=== PATIENT | female | born 1960 | race Caucasian/White ===

== ENCOUNTER 2016-10-15 14:17 | Emergency (ER) | payer MEDICARE, MEDICAID, SELFPAY ==
[2016-10-15 15:02] VITALS: BMI 48.4
[2016-10-15 15:17] LABS: AUTOMATED BASOPHIL 0.7 % (0-2); AUTOMATED EOSINOPHIL 0.3 % (0-5); AUTOMATED LYMPH 21.4 % (17-44); AUTOMATED MONOCYTE 13.2 % (3-10); AUTOMATED NEUTROPHIL 64.4 % (45-76); MPV 7.8 fL (7.4-10.4)
[2016-10-15 15:28] LABS: BLOOD UREA NITROGEN 14 MG/DL (7-17); CALCIUM 10.3 MG/DL (8.4-10.2); CALCULATED OSMOLALITY 280 MOs/Kg (270-290); CHLORIDE 102 mEq/L (98-107); GLUCOSE 178 MG/DL (70-99); SODIUM LEVEL 143 mEq/L (137-146)
--- NOTE | 2016-10-15 15:45 | DIRPT ---
CLINICAL DATA: Shortness of breath and fever EXAM: CHEST - 2 VIEW COMPARISON: 05/15/2016 FINDINGS: Cardiac shadow is mildly prominent. The lungs are well aerated bilaterally. Minimal increased density is noted in the bases bilaterally likely representing atelectasis. No focal confluent infiltrate is seen. No bony abnormality is noted. IMPRESSION: Mild bilateral atelectasis in the bases. No focal infiltrate is seen. Electronically Signed By: Scott Mcgee M.D. On: 10/15/2016 15:42
[2016-10-15] MEDS ORDERED: PROMETHAZINE 25 MG/ML VIAL IM ONE (17:26)
[2016-10-15] MEDS ORDERED: OXYCODONE HCL 5 MG TABLET PO ONE (17:26)
--- NOTE | 2016-10-15 17:29 | EDPRACDOC ---
- General Information Chief Complaint: Flu-Like Symptoms Stated Complaint: COUGH/FLACO/BODY ACHES/FEVER Time Seen by Provider: 10/15/16 17:25 Information Source: Patient Mode Of Arrival: Car Home Medications: Home Medications Albuterol Sulfate [Proair Hfa] 2 puff INH Q4-6H PRN 04/01/15 Amitriptyline HCl [Elavil] 30 mg PO HS 04/01/15 Aspirin 325 mg PO DAILY 04/01/15 Benztropine Mesylate 2 mg PO HS 04/01/15 Duloxetine [Cymbalta] 120 mg PO QAM 04/01/15 Esomeprazole Mag Trihydrate [Nexium] 40 mg PO BID 04/01/15 Glipizide [Glipizide ER] 10 mg PO DAILY 04/01/15 Hydroxyzine Pamoate 100 mg PO QHS 04/01/15 Mometasone/Formoterol [Dulera 200/5] 2 puff INH RTBID 04/01/15 Montelukast Sodium [Singulair] 10 mg PO DAILY 04/01/15 Oxycodone HCl/Acetaminophen [Oxycodon-Acetaminophen 7.5-325] 1 tab PO TID PRN Potassium Chloride 10 meq PO BID 04/01/15 Pregabalin [Lyrica] 150 mg PO TID 04/01/15 Rosuvastatin [Crestor] 10 mg PO HS 04/01/15 Senna Concentrate [Senokot] 1 tab PO DAILY 04/01/15 Furosemide [Lasix] 40 mg PO DAILY 06/24/15 Lorazepam [Ativan] 1 mg PO TID 06/24/15 Multivitamin [One Daily] 1 each PO DAILY 06/24/15 [place]-3 Acid Ethyl Esters [Lovaza] 1 gm PO BID 06/24/15 Aripiprazole [Abilify] 15 mg PO HS 01/21/16 Calcium Carbonate/Vitamin D3 [Calcium 600 + Vit D 200 Tablet] 1 each PO BID 08/27 Carbamazepine [Tegretol] 400 mg PO BID 01/21/16 Metformin HCl [Metformin HCl ER] 1,000 mg PO BID 01/21/16 TOPIRAMATE (Anticonvulsant) [Topamax] 50 mg PO BID 01/21/16 Tizanidine HCl [Zanaflex] 4 mg PO TID PRN 01/21/16 Ciclesonide [Omnaris] 12.5 gm SANTOSH DAILY 05/15/16 Fentanyl [Duragesic] 25 mcg TOP Q72H 05/15/16 Ketorolac Tromethamine [Toradol] 10 mg PO Q6H PRN #20 tab 05/20/16 Diphenoxylate HCl/Atrop Sulf [Lomotil Tablet] 1 each PO TID #10 tablet 10/15/16 Ondansetron [Zofran Odt] 4 mg PO Q6H #20 tab.rapdis 10/15/16 Allergies/Adverse Reactions: Allergies Allergy/AdvReac Type Severity Reaction Status Date / Time amoxicillin trihydrate Allergy Mild Diarrhea Verified 10/15/16 15:02 [From Augmentin] cephalexin monohydrate Allergy Mild Diarrhea Verified 10/15/16 15:02 [From Keflex] erythromycin base Allergy Mild Diarrhea Verified 10/15/16 15:02 [Erythromycin Base] hydrocodone bitartrate Allergy Mild Difficulty Verified 10/15/16 15:02 [From Vicodin] Breathing levofloxacin [From Levaquin] Allergy Mild Difficulty Verified 10/15/16 15:02 Breathing loratadine [From Claritin] Allergy Mild Difficulty Verified 10/15/16 15:02 Breathing potassium clavula Allergy Mild UNKNOWN Verified 10/15/16 15:02 *RETIRED-03/18/13 [From Augmentin] sulfamethoxazole Allergy Mild UNKNOWN Verified 10/15/16 15:02 [From Septra] trimethoprim [From Septra] Allergy Mild UNKNOWN Verified 10/15/16 15:02 dicyclomine Allergy Unknown Unknown Verified 10/15/16 15:02 - History of Present Illness Onset: 2 weeks HPI: PT C/O N/V/D RUNNY NOSE AND BODYACHES FOR APPROX 2 WEEKS, STATES SHE WAS DXD WITH THE FLU APPROX 1 WEEK AGO. STATS SHE CANT KEEP ANYTHING DOWN, AND AFTER SHE DRINKS OR EATS 20-30 MINUTES LATER SHE VOMITS. Symptoms Occured: Reports: Spontaneous Duration: Reports: Since Onset Emesis: Reports: Bilious Recent: Reports: None Pain Quality: Reports: Aching Pain Severity: Moderate Pain Location: Reports: Diffuse : No Associated Signs & Symptoms: Reports: Nausea, Vomiting, Diarrhea, Chills, Other (BODYACHES AND NASAL SYMPTOMS) Oral Intake: Decreased (PER PT) Urinary Output: Normal ED Past Medical History - History Reviewed Yes Nurses notes reviewed and agree except as marked Travel Outside of [place] in the Last 3 Months?: No - Patient Medical History Neurological History: Reports: Cerebrovascular Accident (tia) Cardiac History: Reports: Atrial Fibrillation, Hypertension, Congestive Heart Failure, Hypercholesterolemia Respiratory History: Reports: Asthma, COPD, Pneumonia, Emphysema GI/ History: Reports: Gastroesophageal Reflux Musculoskeletal History: Reports: Arthritis Psychological History: Reports: Depression, Anxiety, Bipolar Disorder Systemic History: Reports: Diabetes. Denies: Cancer Additional Past Medical History: CHRONIC PAIN Surgical History: Reports: Hysterectomy, Tonsillectomy/Adnoidectomy, Other ( knee replacement) - Family Medical History Reports: Hypertension, Cancer, Stroke, Cardiac Disorders - Social Medical History Smoking Status: Never smoker ETOH: None Substance Abuse: None Lives With: Spouse Lives In: Home EDM Review of Systems - Review of Systems ROS Negative Except as Marked: Yes All systems reviewed and were negative except as marked Constitutional: Chills, Fever, Other (MYALGIAS). negative: Fatigue, Loss of Appetite, Weakness Eyes: No Symptoms Reported. negative: Redness, Blurred Vision, Double Vision, Discharge, Pain, Light Sensitive, Photophobia Ears: No Symptoms Reported. negative: Pain, Hearing Loss, Drainage, Ear Pulling Throat: No Symptoms Reported. negative: Pain, Swelling Nose: Congestion. negative: Abrasion, Bleeding, Discharge, Deformity, Ecchymosis, Injection, Laceration, Swelling, Tender Mouth: No Symptoms Reported. negative: Pain, Drooling Respiratory: No Symptoms Reported. negative: Cough, Brassy Cough, Barky Cough, Shortness of Breath, Wheezing, Hemoptysis Cardiovascular: No Symptoms Reported. negative: Chest Pain, Cyanosis, Edema, Orthopnea, Palpitations, PND, Syncope, Skin Mottling Gastrointestinal: Diarrhea, Nausea, Vomiting. negative: Constipation, Formula Intolerance, Melena, Pain Genitourinary: No Symptoms Reported. negative: Dysuria, Hematuria, Frequency, Discharge, Bleeding, Testicular Pain, Neurological: No Symptoms Reported. negative: Headache, Dizziness, Seizure, Numbness, Weakness, Speech Difficulty, Gait Difficulty Musculoskeletal: Other (MYALGIAS). negative: Arm, Ankle, Back, Chestwall, Elbow , Forearm, Femur, Foot, Hand, Hip, Knee, Leg, Neck, Pelvis, Ribs, Shoulder, Wrist Integumentary: No Symptoms Reported. negative: Itching, Rash, Bruising, Wound Allergic/Immunologic: No Symptoms Reported. negative: Hives, Itching Hematologic: No Symptoms Reported. negative: Lymphadenopathy, Easy Bruising, Easy Bleeding Endocrine: No Symptoms Reported. negative: Weight Gain, Weight Loss Psychiatric: No Symptoms Reported. negative: Anxiety, Depression, Hallucinations, Insomnia, Suicidal - Physical Exam Constitutional: Alert (Awake), No apparent distress Oriented to: Time, Person, Place Last recorded Vital Signs: Last Vital Signs Temp 98.1 F 10/15/16 14:59 Pulse 111 10/15/16 14:59 Resp 18 10/15/16 14:59 BP 166/94 10/15/16 14:59 Pulse Ox 93 10/15/16 14:59 Oxygen Pulse Oxygen Saturation 93 O2 Device Room Air Oxygen Flow Rate Fraction of Inspired Oxygen ( FIO2) - HEENT Head: Normal ( normocephalic) Eye Exam: Normal (PERRL, EOMI, Sclera white) Oropharynx: Normal (Pharynx:Moist without exudate,Gums-no swelling), Other ( MEMBRANES WET AND PINK) Tympanic Membrane: Normal ENT EAC: Normal TMJ: Normal Nose: No Symptoms Reported (septum midline) Neck: Normal (FROM, trachea at midline) - Respiratory/Cardiovascular Respiratory: Normal - CTA (BBS clear to auscultation without adventitious sounds ) Cardiovascular: Tachycardia (109 AT BEDSIDE) - GI Auscultation: Normal (NABS) Palpation: Normal (Soft,No rebound or guarding, non distended) Tenderness: Non tender Townsend's Sign: Negative - Bladder: Normal - Musculoskeletal Back: Normal (Non-Tender) Extremities: Normal (Normal tone, Pulses 2+ No cyanosis or edema, FROM) - Integumentary Skin: Normal, Warm, Dry Lymphatics: Normal (no adenopathy) - Neurologic Memory Impaired: Normal Motor Function: Normal (Normal tone, Pulses 2+ No cyanosis or edema, FROM) Cranial Nerve: Normal (CN II-X11 intact sensation, strength 5/5) Cerebellar: Normal Mood Description: Normal Perception: Normal - Differential Diagnosis Diarrhea, Other (INFLUENZA, VIRAL SYNDROME, DEHYDRATION) - Results 10/15/16 15:06 10/15/16 15:06 WBC 5.9 xk/uL (3.8-10.8) 10/15/16 15:06 RBC 5.14 xM/uL (4.20-5.40) 10/15/16 15:06 Hgb 13.7 g/dL (12.0-16.0) 10/15/16 15:06 Hct 41.1 % (36-47) 10/15/16 15:06 MCV 80 fL (81-99) L 10/15/16 15:06 MCH 26.7 pg (27-32) L 10/15/16 15:06 MCHC 33.5 g/dl (33-36) 10/15/16 15:06 RDW 14.6 % (11.5-14.5) H 10/15/16 15:06 Plt Count 196 xk/uL (130-400) 10/15/16 15:06 MPV 7.8 fL (7.4-10.4) 10/15/16 15:06 Neut % (Auto) 64.4 % (45-76) 10/15/16 15:06 Lymph % (Auto) 21.4 % (17-44) 10/15/16 15:06 [place] % (Auto) 13.2 % (3-10) H 10/15/16 15:06 Eos % (Auto) 0.3 % (0-5) 10/15/16 15:06 Baso % (Auto) 0.7 % (0-2) 10/15/16 15:06 Absolute Neuts (auto) 3.78 xk/uL (1.7-8.2) 10/15/16 15:06 Absolute Lymphs (auto) 1.24 xk/uL (0.65-4.75) 10/15/16 15:06 Sodium 143 mEq/L (137-146) 10/15/16 15:06 Potassium 4.3 mEq/L (3.5-5.1) 10/15/16 15:06 Chloride 102 mEq/L (98-107) 10/15/16 15:06 Carbon Dioxide 24 mMOL/L (22-33) 10/15/16 15:06 Anion Gap 21 mEq/L (8-16) H 10/15/16 15:06 BUN 14 MG/DL (7-17) 10/15/16 15:06 Creatinine 0.70 MG/DL (0.52-1.04) 10/15/16 15:06 Estimated GFR (MDRD) > 60 mL/min (>=60) 10/15/16 15:06 Glucose 178 MG/DL (70-99) H 10/15/16 15:06 Calculated Osmolality 280 MOs/Kg (270-290) 10/15/16 15:06 Calcium 10.3 MG/DL (8.4-10.2) H 10/15/16 15:06 Total Bilirubin 0.5 MG/DL (0.2-1.3) 10/15/16 15:06 AST 95 IU/L (14-36) H 10/15/16 15:06 ALT 90 IU/L (9-52) H 10/15/16 15:06 Alkaline Phosphatase 164 IU/L (38-126) H 10/15/16 15:06 Total Protein 8.0 G/DL (6.3-8.2) 10/15/16 15:06 Albumin 4.8 G/DL (3.5-5.0) 10/15/16 15:06 Lab Results 10/15/16 10/15/16 15:06 15:06 WBC 5.9 RBC 5.14 Hgb 13.7 Hct 41.1 MCV 80 L MCH 26.7 L MCHC 33.5 RDW 14.6 H Plt Count 196 MPV 7.8 Neut % (Auto) 64.4 Lymph % (Auto) 21.4 [place] % (Auto) 13.2 H Eos % (Auto) 0.3 Baso % (Auto) 0.7 Absolute Neuts (auto) 3.78 Absolute Lymphs (auto) 1.24 Sodium 143 Potassium 4.3 Chloride 102 Carbon Dioxide 24 Anion Gap 21 H BUN 14 Creatinine 0.70 Estimated GFR (MDRD) > 60 Glucose 178 H Calculated Osmolality 280 Calcium 10.3 H Total Bilirubin 0.5 AST 95 H ALT 90 H Alkaline Phosphatase 164 H Total Protein 8.0 Albumin 4.8 - Diagnostic Imaging CXR Image interpreted by: Radiologist IMPRESSION: Mild bilateral atelectasis in the bases. No focal infiltrate is seen. Decision Time to Discharge: 17:34 - Departure Disposition: Home Condition: Stable Final Diagnosis: Nausea vomiting and diarrhea Instructions: Acute Nausea and Vomiting (ED) Education/Counseling Given To: Patient Education/Counseling Given Regarding: Diagnosis, Treatment, Prognosis, Follow Up Referrals: None,No Provider [NonStaff] - One Week Prescriptions: Diphenoxylate HCl/Atrop Sulf [Lomotil Tablet] 1 each PO TID #10 tablet Ondansetron [Zofran Odt] 4 mg PO Q6H #20 tab.rapdis Additional Instructions: INCREASE PO FLUIDS. FOLLOW UP WITH YOUR PRIMARY MEDICAL DOCTOR.
[2016-10-15 18:15] VITALS: BP 140/78; PULSE 100; TEMP 98.9
== END 2016-10-15 18:15 | disposition home or self-care (01) ==
LOC: ED 14:17 → EDMC 18:15
DX: R11.2 Nausea with vomiting, unspecified (principal); R19.7 Diarrhea, unspecified
CPT/HCPCS: 36415; 71020; 80053; 85025; 96372; 99283; A9270; J2550; J3490

== ENCOUNTER 2016-11-09 00:27 | Emergency (ER) | payer MEDICARE, MEDICAID ==
[2016-11-09 00:45] VITALS: TEMP 98.5; BMI 49.5
--- NOTE | 2016-11-09 00:58 | EDPRACDOC ---
- General Information Chief Complaint: Back Pain Stated Complaint: BACK PAIN Time Seen by Provider: 11/09/16 00:49 Mode Of Arrival: Car Home Medications: Home Medications Albuterol Sulfate [Proair Hfa] 2 puff INH Q4-6H PRN 04/01/15 Amitriptyline HCl [Elavil] 30 mg PO HS 04/01/15 Aspirin 325 mg PO DAILY 04/01/15 Benztropine Mesylate 2 mg PO HS 04/01/15 Duloxetine [Cymbalta] 120 mg PO QAM 04/01/15 Esomeprazole Mag Trihydrate [Nexium] 40 mg PO BID 04/01/15 Glipizide [Glipizide ER] 10 mg PO DAILY 04/01/15 Hydroxyzine Pamoate 100 mg PO QHS 04/01/15 Mometasone/Formoterol [Dulera 200/5] 2 puff INH RTBID 04/01/15 Montelukast Sodium [Singulair] 10 mg PO DAILY 04/01/15 Oxycodone HCl/Acetaminophen [Oxycodon-Acetaminophen 7.5-325] 1 tab PO TID PRN Potassium Chloride 10 meq PO BID 04/01/15 Pregabalin [Lyrica] 150 mg PO TID 04/01/15 Rosuvastatin [Crestor] 10 mg PO HS 04/01/15 Senna Concentrate [Senokot] 1 tab PO DAILY 04/01/15 Furosemide [Lasix] 40 mg PO DAILY 06/24/15 Lorazepam [Ativan] 1 mg PO TID 06/24/15 Multivitamin [One Daily] 1 each PO DAILY 06/24/15 [place]-3 Acid Ethyl Esters [Lovaza] 1 gm PO BID 06/24/15 Aripiprazole [Abilify] 15 mg PO HS 01/21/16 Calcium Carbonate/Vitamin D3 [Calcium 600 + Vit D 200 Tablet] 1 each PO BID 08/27 Carbamazepine [Tegretol] 400 mg PO BID 01/21/16 Metformin HCl [Metformin HCl ER] 1,000 mg PO BID 01/21/16 TOPIRAMATE (Anticonvulsant) [Topamax] 50 mg PO BID 01/21/16 Tizanidine HCl [Zanaflex] 4 mg PO TID PRN 01/21/16 Ciclesonide [Omnaris] 12.5 gm SANTOSH DAILY 05/15/16 Fentanyl [Duragesic] 25 mcg TOP Q72H 05/15/16 Ketorolac Tromethamine [Toradol] 10 mg PO Q6H PRN #20 tab 05/20/16 Diphenoxylate HCl/Atrop Sulf [Lomotil Tablet] 1 each PO TID #10 tablet 10/15/16 Ondansetron [Zofran Odt] 4 mg PO Q6H #20 tab.rapdis 10/15/16 Naproxen Sodium 500 mg PO BID PRN #20 tablet.sa 11/09/16 Prednisone [Deltasone, Orasone] 40 mg PO DAILY 5 Days 11/09/16 Allergies/Adverse Reactions: Allergies Allergy/AdvReac Type Severity Reaction Status Date / Time amoxicillin trihydrate Allergy Mild Diarrhea Verified 11/09/16 00:46 [From Augmentin] cephalexin monohydrate Allergy Mild Diarrhea Verified 11/09/16 00:46 [From Keflex] erythromycin base Allergy Mild Diarrhea Verified 11/09/16 00:46 [Erythromycin Base] hydrocodone bitartrate Allergy Mild Difficulty Verified 11/09/16 00:46 [From Vicodin] Breathing levofloxacin [From Levaquin] Allergy Mild Difficulty Verified 11/09/16 00:46 Breathing loratadine [From Claritin] Allergy Mild Difficulty Verified 11/09/16 00:46 Breathing potassium clavula Allergy Mild UNKNOWN Verified 11/09/16 00:46 *RETIRED-03/18/13 [From Augmentin] sulfamethoxazole Allergy Mild UNKNOWN Verified 11/09/16 00:46 [From Septra] trimethoprim [From Septra] Allergy Mild UNKNOWN Verified 11/09/16 00:46 dicyclomine Allergy Unknown Unknown Verified 11/09/16 00:46 - History of Present Illness Onset: 3 days HPI: PT REPORTS INCREASE IN CHRONIC LOW BACK PAIN OVER THE LAST 3 DAYS, NO NEW INJURY , PT SEES PAIN MANAGEMENT ABOUT HER BACK, TAKING HER USUAL OXYCODONE AND MORPHINE WITHOUT RELIEF. Pain Location: Reports: Bilateral, Lower, Lumbar Pain Radiates To: Reports: None Pain Caused By: Reports: Spontaneous Relevant History: Reports: Chronic back pain Pain Severity: Reports: Severe Pain Quality: Reports: Sharp, Stabbing Worsened By: Reports: Movement Associated Signs and Symptoms: Reports: None ED Past Medical History - History Reviewed Yes Nurses notes reviewed and agree except as marked - Patient Medical History Neurological History: Reports: Cerebrovascular Accident (tia) Cardiac History: Reports: Atrial Fibrillation, Hypertension, Congestive Heart Failure, Hypercholesterolemia Respiratory History: Reports: Asthma, COPD, Pneumonia, Emphysema GI/ History: Reports: Gastroesophageal Reflux Musculoskeletal History: Reports: Arthritis Psychological History: Reports: Depression, Anxiety, Bipolar Disorder Systemic History: Reports: Diabetes. Denies: Cancer Additional Past Medical History: CHRONIC PAIN Surgical History: Reports: Hysterectomy, Tonsillectomy/Adnoidectomy, Other ( knee replacement) - Family Medical History Reports: Hypertension, Cancer, Stroke, Cardiac Disorders - Social Medical History Smoking Status: Former smoker ETOH: None Substance Abuse: None EDM Review of Systems - Review of Systems Constitutional: negative: Chills, Fever Gastrointestinal: negative: Nausea, Vomiting Genitourinary: negative: Dysuria, Frequency Neurological: negative: Dizziness, Headache, Numbness, Weakness Musculoskeletal: Back Integumentary: No Symptoms Reported - Physical Exam Constitutional: Alert (Awake), No apparent distress Oriented to: Time, Person, Place Last recorded Vital Signs: Last Vital Signs Temp 98.5 F 11/09/16 00:43 Pulse 87 11/09/16 00:43 Resp 20 11/09/16 00:43 BP 148/68 11/09/16 00:43 Pulse Ox 97 11/09/16 00:43 Oxygen Pulse Oxygen Saturation 97 O2 Device Room Air Oxygen Flow Rate Fraction of Inspired Oxygen ( FIO2) - HEENT Head: Normal ( normocephalic) - Integumentary Skin: Normal, Warm, Dry Lymphatics: Normal (no adenopathy) - Neurologic Memory Impaired: Normal Motor Function: Normal (Normal tone, Pulses 2+ No cyanosis or edema, FROM) Cranial Nerve: Normal (CN II-X11 intact sensation, strength 5/5) Cerebellar: Normal Mood Description: Normal Perception: Normal ED Back Exam - Neurologic Motor Deficit: None - Musculoskeletal Cervical: Normal Thoracic: Normal Lumbar: Tender Midline: Tender Paraspinous: Tender Straight Leg Raise: Negative Pelvis: Normal - Differential Diagnosis HNP, Musculoskeletal pain, Strain Decision Time to Discharge: 00:59 - Departure Disposition: Home Condition: Stable Final Diagnosis: Acute exacerbation of chronic low back pain Instructions: Back Pain Education/Counseling Given To: Patient Education/Counseling Given Regarding: Diagnosis, Treatment, Prognosis, Follow Up Referrals: Nuris Jeffries PA [Primary Care Provider] - One Week Prescriptions: New Naproxen Sodium 500 mg PO BID PRN #20 tablet.sa PRN Reason: Pain Prednisone [Deltasone, Orasone] 40 mg PO DAILY 5 Days No Action Aspirin 325 mg PO DAILY Senna Concentrate [Senokot] 1 tab PO DAILY Albuterol Sulfate [Proair Hfa] 2 puff INH Q4-6H PRN PRN Reason: Shortness Of Breath Mometasone/Formoterol [Dulera 200/5] 2 puff INH RTBID Amitriptyline HCl [Elavil] 30 mg PO HS Glipizide [Glipizide ER] 10 mg PO DAILY Hydroxyzine Pamoate 100 mg PO QHS Benztropine Mesylate 2 mg PO HS Pregabalin [Lyrica] 150 mg PO TID Montelukast Sodium [Singulair] 10 mg PO DAILY Potassium Chloride 10 meq PO BID Rosuvastatin [Crestor] 10 mg PO HS Esomeprazole Mag Trihydrate [Nexium] 40 mg PO BID Oxycodone HCl/Acetaminophen [Oxycodon-Acetaminophen 7.5-325] 1 tab PO TID PRN PRN Reason: Pain Duloxetine [Cymbalta] 120 mg PO QAM Multivitamin [One Daily] 1 each PO DAILY [place]-3 Acid Ethyl Esters [Lovaza] 1 gm PO BID Lorazepam [Ativan] 1 mg PO TID Furosemide [Lasix] 40 mg PO DAILY TOPIRAMATE (Anticonvulsant) [Topamax] 50 mg PO BID Calcium Carbonate/Vitamin D3 [Calcium 600 + Vit D 200 Tablet] 1 each PO BID Carbamazepine [Tegretol] 400 mg PO BID Metformin HCl [Metformin HCl ER] 1,000 mg PO BID Tizanidine HCl [Zanaflex] 4 mg PO TID PRN PRN Reason: Muscle Spasms Aripiprazole [Abilify] 15 mg PO HS Fentanyl [Duragesic] 25 mcg TOP Q72H Ciclesonide [Omnaris] 12.5 gm SANTOSH DAILY Ketorolac Tromethamine [Toradol] 10 mg PO Q6H PRN #20 tab PRN Reason: Pain Diphenoxylate HCl/Atrop Sulf [Lomotil Tablet] 1 each PO TID #10 tablet Ondansetron [Zofran Odt] 4 mg PO Q6H #20 tab.[email or web address] Additional Instructions: CONTINUE YOUR USUAL MEDICATIONS BEFORE, YOU MUST FOLLOW UP WITH YOUR PAIN MANAGEMENT DOCTOR FOR FURTHER EVALUATION
[2016-11-09] MEDS ORDERED: KETOROLAC TROMETHAMINE 10 MG TAB PO ONE (01:00)
[2016-11-09 01:09] VITALS: BP 148/69; PULSE 85
== END 2016-11-09 01:08 | disposition home or self-care (01) ==
LOC: ED 00:27
DX: M54.5 Low back pain (principal); G89.29 Other chronic pain
CPT/HCPCS: 99282; A9270; J3490